=== PATIENT | female | born 1970 | race Caucasian/White ===

== ENCOUNTER 2017-07-04 04:55 | Emergency (ER) | payer MEDICAID ==
[2017-07-04] MEDS ORDERED: Albuterol/Ipratropium Neb 3 ML AERS HHN ONE ×2 (05:22→05:26)
--- NOTE | 2017-07-04 05:29 | ED Physician Chart ---
Chief Complaint/HPI - Patient Information Date Seen:: 07/04/17 Time Seen:: 05:23 Chief Complaint:: cough History of Present Illness:: THIS IS A 46 YO FEMALE WITH A RECURRENT CHEST CONGESTION, COUGH,YELLOW SPUTUM AND FEVER OVER THREE DAYS. SHE IS NOT A SMOKER OR DRINKER. SHE DENIES A HISTORY OF ASTHMA OR HEART FAILURE. SHE DENIES DIABETES AND HYPERTENSION. Allergies:: Allergies Allergy/AdvReac Type Severity Reaction Status Date / Time No Known Allergies Allergy Verified 07/04/17 05:15 Vitals:: Vital Signs - 8 hr 07/04/17 05:00 Temp 97.9 F HR 67 RR 20 BP 119/82 O2 Sat % 97 Historian:: Patient Review:: Nurse's Note Reviewed Review of Systems - Review of Systems General/Constitutional: Fever, No chills, No weight loss, No weakness, No diaphoresis, No edema, No loss of appetite Skin: No skin lesions, No rash, No bruising Head: No headache, No light-headedness Eyes: No loss of vision, No pain, No diplopia ENT: No earache, No nasal drainage, No sore throat, No tinnitus Neck: No neck pain, No swelling, No thyromegaly, No stiffness, No mass noted Cardio Vascular: No chest pain, No palpitations, No PND, No orthopnea, No edema Pulmonary: SOB, Cough, Sputum, Wheezing GI: No nausea, No vomiting, No diarrhea, No pain, No melena, No hematochezia, No constipation, No hematemesis G/U: No dysuria, No frequency, No hematuria Musculoskeletal: No bone or joint pain, No back pain, No muscle pain Endocrine: No polyuria, No polydipsia Psychiatric: No prior psych history, No depression, No anxiety, No suicidal ideation Hematopoietic: No bruising, No lymphadenopathy Allergic/Immuno: No urticaria, No angioedema Neurological: No syncope, No focal symptoms, No weakness, No paresthesia, No headache, No seizure, No dizziness, No confusion, No vertigo Past Medical History - Past Medical History Obtainable: Yes Past Medical History: No significant medical hx Family History: None Social History: Non Smoker, No Alcohol, No Drug Use Surgical History: Cholecystectomy, (SDA) Psychiatricy History: None Medication: Reviewed Family Medical History - Family Member Mother History Unknown: Yes Physical Exam - Physical Examination General/Constitutional: Awake, Well-developed, well-nourished, Alert, No distress, GCS 15, Non-toxic appearing, Ambulatory Head: Atraumatic Eyes: Lids, conjuctiva normal, PERRL, EOMI Skin: Nl inspection, No rash, No skin lesions, No ecchymosis, Well hydrated, No lymphadenopathy ENMT: External ears, nose nl, Nasal exam nl, Lips, teeth, gums nl Neck: Nontender, Full ROM w/o pain, No JVD, No nuchal rigidity, No bruit, No mass, No stridor Respiratory: Nl effort/Exclusion Other Respiratory comments:: THERE ARE BILATERAL RHONCHI AND WHEEZES HEARD IN THE LUNGS Cardio Vascular: RRR, No murmur, gallop, rubs, NL S1 S2 GI: No tenderness/rebounding/guarding, No organomegaly, No hernia, Normal BS's, Nondistended, No mass/bruits, No McBurney tenderness : No CVA tenderness Extremities: No tenderness or effusion, Full ROM, normal strength in all extremities, No edema, Normal digits & nails Neuro/Psych: Alert/oriented, DTR's symmetric, Normal sensory exam, Normal motor strength, Judgement/insight normal, Mood normal, Normal gait, No focal deficits Misc: normal gait, Normal back, No paraspinal tenderness Assessment - Assessment General Assessment: BRONCHITIS ED Septic Shock - . Is Septic Shock (SBP<90, OR Lactate>4 mmol\L) present?: No - <6hrs of presentation: Vital Signs: Vital Signs - 8 hr 07/04/17 05:00 Temp 97.9 F HR 67 RR 20 BP 119/82 O2 Sat % 97 Reassessment (Disposition) - Reassessment Reassessment Condition:: Improved - Diagnosis Diagnosis:: ACUTE BRONCHITIS - Aftercare/Follow up Instructions Aftercare/Follow-Up Instructions:: Counseled pt regarding lab results/diagnosis & need follow up, Refer to Discharge Instructions, Counseled pt & family regarding lab results/diagnosis & need follow up - Patient Disposition Discharge/Transfer:: Home Condition at Disposition:: Improved ED Discharge Plan - Patient Disposition Admit/Discharge/Transfer: PT DISCHARGED HOME Condition at Disposition: Improved
== END 2017-07-04 06:15 | disposition home or self-care (01) ==
LOC: ER 04:55
DX: J20.9 Acute bronchitis, unspecified (principal); Z90.49 Acquired absence of other specified parts of digestive tract
CPT/HCPCS: 99284; 96372 ×2; J2930; Z7502

== ENCOUNTER 2017-08-03 18:09 | Emergency (ER) | payer MEDICAID ==
--- NOTE | 2017-08-03 20:26 | ED Physician Chart ---
ED Chief Complaint/HPI - Patient Information Date Seen:: 08/03/17 Time Seen:: 20:05 Chief Complaint:: headache History of Present Illness:: patient had gradual onset yesterday of posterior neck, occipital and vertex headache. This is not her worst headache ever. Ran out of her medications. Allergies:: Allergies Allergy/AdvReac Type Severity Reaction Status Date / Time No Known Allergies Allergy Verified 08/03/17 18:31 Vitals:: Vital Signs - 8 hr 08/03/17 18:21 HR 77 RR 16 BP 141/84 O2 Sat % 98 Historian:: Patient Review:: Nurse's Note Reviewed ED Review of Systems - Review of Systems General/Constitutional: No fever, No chills Skin: No skin lesions Head: Headache Eyes: No loss of vision ENT: No earache Neck: Neck pain Cardio Vascular: No chest pain Pulmonary: No SOB GI: No nausea, No vomiting G/U: No dysuria Musculoskeletal: No bone or joint pain Endocrine: No polyuria Psychiatric: Anxiety Hematopoietic: No bruising Allergic/Immuno: No urticaria Neurological: No syncope, No weakness ED Past Medical History - Past Medical History Past Medical History: DM, Other (borderline diabetes, migraine headaches and anxiety) Family History: HTN Social History: Non Smoker, Other (social alcohol) Surgical History: , other (3 C-sections) Psychiatricy History: Other (anxiety) Medication: Reviewed Family Medical History - Family Member Mother History Unknown: Yes Ethnicity: ED Physical Exam - Physical Examination General/Constitutional: Well-developed, well-nourished, Alert, No distress Eyes: Lids, conjuctiva normal, PERRL Other Eyes comments:: optic discs are sharp Skin: Nl inspection, No rash ENMT: External ears, nose nl, TM canals nl, Nasal exam nl, Lips, teeth, gums nl Other Neck comments:: 85 degrees forward flexion Respiratory: Nl effort/Exclusion, Clear to Auscultation, No Wheeze/Rhonchi/Rales Cardio Vascular: RRR, No murmur, gallop, rubs GI: No tenderness/rebounding/guarding, No organomegaly : No CVA tenderness Extremities: Normal digits & nails Neuro/Psych: Alert/oriented, Judgement/insight normal, Mood normal, Normal gait , No focal deficits Misc: Normal back ED Septic Shock - . Is Septic Shock (SBP<90, OR Lactate>4 mmol\L) present?: No - <6hrs of presentation: Vital Signs: Vital Signs - 8 hr 08/03/17 18:21 HR 77 RR 16 BP 141/84 O2 Sat % 98 ED Reassessment (Disposition) - Reassessment Reassessment Condition:: Unchanged - Diagnosis Diagnosis:: headache - Aftercare/Follow up Instructions Aftercare/Follow-Up Instructions:: Refer to Discharge Instructions Medication Prescribed:: tizanidine 2 mg #30 Sig 1-6 tablets TID PRN; Propanol 80 mg #30 Sig 1 TID - Patient Disposition Discharge/Transfer:: Home Condition at Disposition:: Stable, Unchanged
== END 2017-08-03 20:40 | disposition home or self-care (01) ==
LOC: ER 18:09
DX: R51 Headache (principal); E11.9 Type 2 diabetes mellitus without complications
CPT/HCPCS: Z7502